=== PATIENT | female | born 1940 | race Caucasian/White ===

== ENCOUNTER → 2016-12-11 | Outpatient (CLI) | payer MEDICARE, BC ==
[~2016-12-11] MED LIST: CELEBREX200 MG PO; CENTRUM SILVER1 EAC1 PO; CIPRO DPS500 MG PO; CLEOCIN HCL150 MG PO; COZAAR100 MG PO; DESYREL-DPS50 MG PO; DURAGESIC DPS100 MCG TD; DURAGESIC DPS100 MCG TP; FLAGYL-DPS500 MG PO; LASIX DPS20 MG PO; LASIX40 MG PO; LYRICA100 MG PO; LYRICA200 MG PO; METOPROLOL SUCC25 MG PO; NORVASC DPS10 MG PO; PRAVACHOL40 MG PO; PREDNISONE20 MG PO; PREVACID15 MG PO; PREVACID30 MG PO; PRISTIQ ER100 MG PO; QUESTRAN DPS4 GM PO; SURFAK DPS240 MG PO; THERA1 EACH PO; TOPROL XL DPS50 MG PO; TRAZODONE HCL50 MG PO; VESICARE5 MG PO; VOLTAREN 1% GE100 GM TP; XARELTO20 MG PO; ZANAFLEX4 MG PO
== END | disposition home or self-care (01) ==
LOC: RAD.S 08:50
DX: Z12.31 Encounter for screening mammogram for malignant neoplasm of breast (principal)